=== PATIENT | male | born 1950 | race Caucasian/White ===

== ENCOUNTER 2022-08-23 10:53 | Outpatient (CLI) | payer MEDICARE, BC, SELFPAY | END 2022-08-23 10:54 | disposition home or self-care (01) | LOC: CT 10:56 | PROVIDERS: PCP Family Medicine; Visit Provider Orthopaedic Surgery Sports Medicine | DX: M19.011 Primary osteoarthritis, right shoulder (principal) | CPT/HCPCS: 73200 ==

== ENCOUNTER 2022-08-31 10:46 | Outpatient (RCR) | payer MEDICARE, BC, SELFPAY ==
--- NOTE | 2022-08-31 12:15 | OT.OPGNE ---
OT Outpatient General/Neuro Eval OT Outpatient General/Neuro Eval Start: 08/31/22 11:54 Freq: Status: Active Protocol: Document 08/31/22 11:54 SMW (Rec: 08/31/22 12:10 SMW [id number]) E-signed By Bea Harper OT OT Outpatient Evaluation Details Type Type Eval Complexity Low Insurance Information Insurance Information Insurance Information Medicare B Outpatient History/Precautions Medical/Functional History Medical History Reviewed Yes Prior Level of Function/Mobility Patient lives independently with spouse in one level home. Patient uses no assistive device for ambulation. 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 The patient lives with spouse in one level home. He reports I in all ADLs and IADLS. He reports he has had 25 surgeries over the years. He was educated on one handed dressing techniques , positioning, sling management, post op exercises. He will complete his post op PT at [facility] in [place]. All questions answered satisfactorily. Occupational Therapy Treatment Plan - OP Goals Goals Within one visit, the patient will.. 1. understand and return demonstrate post op exercises. goal met 2. understand positioning, one handed dressing, polar care management. goal met. Progress met Certification Certification I Certify That: Therapy Services Provided, Therapy Plan Established, Therapy Plan Reviewed Recertification Information Recertification Information Initial Certification Date 08/31/22 Provider Signature Shows Agreement With POC & Medical Necessity Physician Comment/Change Comment or Changes Physician NPI Number #
== END 2023-02-16 23:59 | disposition home or self-care (01) ==
PROVIDERS: PCP Family Medicine; Visit Provider Orthopaedic Surgery Sports Medicine
DX: M19.011 Primary osteoarthritis, right shoulder (principal); Z51.89 Encounter for other specified aftercare
CPT/HCPCS: 97165; 97535

== ENCOUNTER 2022-09-27 08:58 | Outpatient (CLI) | payer MEDICARE, BC, SELFPAY ==
[2022-09-27 14:33] LABS: SARS PCR* POSITIVE SARS-CoV-2 (Negative)
== END 2022-09-27 08:59 | disposition home or self-care (01) ==
LOC: FBOREF 08:59
PROVIDERS: PCP Family Medicine; Visit Provider Orthopaedic Surgery Sports Medicine
DX: U07.1 COVID-19 (principal)
CPT/HCPCS: 87635

== ENCOUNTER 2022-11-02 09:40 | Day surgery (SDC) | payer MEDICARE, BC, SELFPAY ==
--- NOTE | 2022-10-04 11:51 | PC.NURSE ---
10/04/22 Spoke with pt's . They will call clinic to schedule a H&P. Covid antigen test is schedule for 11/01 at [facility]. Denies questions. Merlene Tejada RN
[2022-11-02] VITALS (23 sets, daily range): BP systolic 124–167; BP diastolic 65–96; PULSE 57–97; RESP 12–20; TEMP 36.2–36.6; O2SAT 92–96; BMI 30.8
[2022-11-02] MEDS: CELECOXIB 200 MG CAPSULE PO (09:29)
[2022-11-02] MEDS: OXYCODONE (CR) 10 MG TAB.ER.12H PO (09:29)
[2022-11-02] MEDS: ACETAMINOPHEN 500 MG TABLET 1000 MG PO ×2 (09:29→17:47)
[2022-11-02] MEDS: LACTATED RINGERS 1000 ML 1,000 ML 100 ML IV ×2 (10:29→12:54)
[2022-11-02] MEDS: SODIUM CHLORIDE 0.9 % (FLUSH) 10 ML SYRINGE IVF (10:30)
--- NOTE | 2022-11-02 11:12 | SUR.PREOP ---
TIME?OUT:?1118 PT/RN/MDA?VERIFICATION?OF?SURGICAL?SITE,?PROCEDURE,?AND?CONSENT OBTAINED?PRIOR?TO?INVASIVE?PROCEDURE.
[2022-11-02] MEDS: fentaNYL 100 MCG/2 ML inj IVP (11:19)
[2022-11-02] MEDS: MIDAZOLAM HCL 1 MG/ML inj IVP (11:19)
--- NOTE | 2022-11-02 12:07 | P.NB_ITS ---
Nerve Block Nerve Block Time Seen by Provider: 11:30 Date Seen: 11/02/22 Type of block requested by surgeon for post-operative analgesia: supraclavicular Side: right Time out performed: Yes Verification of patient name: Yes Verification of date of : Yes Site marking: site marked Name of person performing procedure: bandar Continuous monitoring Was continuous monitoring of O2 sat, B/P, cardiac nurse specialist, recorded every 15 minutes?: Yes Procedure Checklist: sterile prep, needles and gloves Ultrasound guided. Images saved: Yes Medications given in 5ml increments after negative aspiration: Ropivicaine %: 0.5 mL: 20 Needle gauge: 22 Decadron (mg): 10 Precedex (mcg): 25 Patient tolerated procedure well: Yes Block Charges Block Charge (with Pro Fee): Brachial Plexus Use of Ultrasound Machine for Block: Yes- US Guidance/pain block
--- NOTE | 2022-11-02 12:12 | CRLHL7_ITS ---
For Patients: As a result of the Cures Act, medical imaging exams and procedure reports are released immediately into your electronic medical record. You may view this report before your referring provider. If you have questions, please contact your health care provider. Indication: post op right total shoulder arthroplasty Technique: Two views right shoulder Findings/Impression: Hardware from a right total shoulder arthroplasty is in satisfactory position. Bone alignment is normal. No sign of acute fracture. Postop changes are within normal limits. Dictated by Bhavik Thomas MD @ 11/03/2022 10:03:18 AM (Electronically Signed)
[2022-11-02] MEDS: CEFAZOLIN 2 GM in 0.9 % SODIUM CHLORIDE Mini-bag 100 ML IVPB ×2 (12:15→17:48)
[2022-11-02] MEDS: TRANEXAMIC ACID 100 MG/ML INJ 1000 MG IV (12:15)
--- NOTE | 2022-11-02 14:22 | P.ORPRC_ITS ---
Procedure Note Date of procedure: 11/02/22 Procedure: PREOPERATIVE DIAGNOSIS: 1. Right shoulder cuff tear arthropathy 2. Right long head of the biceps tendinopathy and tenosynovitis 3. Right shoulder retained deep implant (previous metallic and peek suture anchors for remote rotator cuff repair) POSTOPERATIVE DIAGNOSIS: 1. Right shoulder cuff tear arthropathy 2. Right long head of the biceps tendinopathy and tenosynovitis 3. Right shoulder retained deep implant (previous metallic and peek suture anch ors for remote rotator cuff repair) PROCEDURE: 1. Right reverse shoulder arthroplasty. 2. Right long head of biceps open tenodesis 3. Right shoulder open removal of deep implant (multiple suture anchors from prior rotator cuff repair) SURGEON: Chad Chacko MD. DIESEL ENGINEER: Arnie Cabrera PA-C; Dwaine PEREZ - Of note, a skilled hr administrative assistant was critical for this case to aid in patient positioning, tissue retraction, limb manipulation/positioning, retraction for glenoid exposure, which was challenging, awareness and protection of critical structures, and closure. ANESTHESIA: General plus supraclavicular block IMPLANTS: DJ0 surgical Altivate humeral stem size 14 regular shell, short with P2 porous coating vitamin E neutral poly small socket insert RSP glenoid base plate P2 porous coating with 3 perimeter locking screws 32 neutral glenosphere with retaining screw COMPLICATIONS: None evident INDICATIONS: The patient is a pleasant 72-year-old male who has experienced severe right shoulder pain and difficulty with use. Workup included imaging which revealed severe osteoarthrosis along with concern for rotator cuff quality. Physical exam was consistent with associated pain. Given the deformity, the dysfunction, and the pain, and failure of nonoperative management, recommendation was made for surgery. DESCRIPTION OF PROCEDURE: Following a thorough discussion of risks, benefits, and alternatives, consent was obtained and the left shoulder was marked. The patient was brought to the operating room and placed supine on the operating table. Induction of anesthesia was undertaken. 2 g IV Ancef and 1 g tranexamic acid was administered within 1 hr of incision preoperatively. Appropriate time- out was performed identifying proper patient, site, and procedure. The operative extremity was prepped and draped in the appropriate sterile fashion using ChloraPrep after the patient was positioned in the lazy beach chair position with head in neutral alignment and all bony prominences well padded. A longitudinal incision was made for deltopectoral approach. Deltoid was retracted laterally. Cephalic vein was identified and retracted laterally as well. The vein did require ligation near the in the procedure due to persistent bleeding that could not be controlled with cautery. The clavipectoral fascia was identified and divided longitudinally staying lateral to the conjoined tendon / coracoid. The conjoined tendon was protected with a blunt Hohmann. The long head of the biceps tendon was identified and the bicipital sheath released. The upper 1/3 of the pectoralis major was also released from its insertion. The long head of the biceps was tenodesed to the pectoralis major tendon. The remaining proximal tendon tissue was excised. The rotator cuff was inspected and found to have good integrity with the subscapularis but fair integrity with a supraspinatus], and a decision for a reverse shoulder arthroplasty was confirmed. [The long head of biceps, of note, was significant flattened, thickened, with abundant tenosynovitis. A subscapularis cuff of tissue was left via tenotomy for later repair with the remaining subscapularis released in a subperiosteal fashion with the Bovie. This was tagged for later repair. The 3 sisters were cauterized. The upper subscapularis was released from the capsule with a curved Gray scissors towards the glenoid. The inferior subscapularis was divided from the capsular tissue on its caudal surface with particular caution for the axillary nerve. This was palpated anterior to the subscapularis both prior to and near the finish of the case. Inferior humeral head osteophytes were excised with caution taken throughout the case with regards to the axillary nerve. The humerus was dislocated, and humeral head cut completed. Then a protector plate was applied. We turned our attention to the glenoid. The humerus was retracted posteriorly. The subscap was protected anteriorly and the labrum/long head biceps origin was excised circumferentially. The capsule was released along the anterior and inferior portions of the glenoid cautiously with a Cedeno elevator being careful not to penetrate deep. The glenoid had appropriate exposure, and was prepared with the cannulated system with a target of approximately 5-10? of inferior tilt and neutral anteversion (patient had 7 ? of retroversion initially). [Utilizing the match Point 3D printed guide, the guide pin was placed. The 3D printed jig removed and after placing the guide pin, the tap was placed followed by the glenoid reaming. The real base plate was opened, and inserted, and excellent compression/purchase was achieved with the central screw. Peripheral screws were then drilled, measured, and placed. The glenosphere was then placed consistent with the preoperative plan utilizing the above noted glenosphere. After securing the glenosphere with the locking, torque limited screw, attention was turned back to the humerus. A canal finder was placed followed by various reamers by hand. Of note, the proximal humeral Reamer did encounter metallic anchor. This prevented us from seeding the proximal Reamer fully. Therefore, this required removal of the anchor. During that process, 2 more peek anchors were encountered with the FiberWire and Ethibond sutures. These anchors were removed completely as were the sutures alone is to remove the retained deep implants from the remote rotator cuff repair. Thorough irrigation normal saline was performed as was curetting were the anchors had been placed to decrease any risk for infection. The real humeral stem was then opened and inserted with excellent metaphyseal fit and stability. Trial poly was placed and the shoulder reduced. Excellent reduction and stability achieved with appropriate tension on the conjoined tendon. At this stage, trial implants were removed, and the real implants inserted and the shoulder reduced. A 3 minute Betadine soak was performed fo llowed by a thorough irrigation with normal saline. Subscapularis was repaired with #1 PDS to the cuff of tissue on the lesser tuberosity. Excellent reapproximation of tissue achieved. Hemostasis was found to be appropriate. The deltopectoral interval was reapproximated with 0 Vicryl, subcutaneous and subcuticular closure was then performed with number 2-0 Vicryl and 4-0 Monocryl, respectively. A skilled hr administrative assistant was critical for this case to aid in patient positioning, tissue retraction, limb manipulation/positioning, retraction for glenoid exposure, which was challenging, awareness and protection of critical structures, and closure. PLAN: 1. Sling at all times for the operative upper extremity. 2. AROM of elbow, forearm, wrist, and digits as tolerated. 3. PT/OT consults for education and assistance. 4. Social consult for discharge planning. 5. 23 hr perioperative antibiotics. 6. Early ambulation, and SCDs for DVT prophylaxis. 7. Admit to the hospital for the above 8. Analgesics p.r.n.
--- NOTE | 2022-11-02 14:41 | W.ANESCHARGE ---
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
--- NOTE | 2022-11-02 15:23 | SUR.PHASEI ---
patient met discharge criteria per anesthesia
[2022-11-02] MEDS: LACTATED RINGERS 1000 ML 1,000 ML 75 ML IV (15:46)
--- NOTE | 2022-11-02 17:32 | P.IMCN_ITS ---
Date of Consult Patient: Hoda Patient Consult date: 11/02/22 Requesting Physician: Orthopedics Primary Care Provider: Diego Mckeon MD Consult Narrative Reason for consult: Postoperative medical management Narrative: Emil Frias is a 72 year old right-handed male seen after right shoulder arthroplasty. Procedures performed by Dr. Chacko today. There were no complications. Postoperatively he is doing well. He is not having significant pain. His block is still in affect. Preoperatively he reports doing well. He he has not had recent illness or i njury. He was scheduled to have shoulder surgery month ago but it had to be postponed because he had a positive COVID test though he was asymptomatic at the time. Subsequently he has had negative COVID tests. He is vaccinated for COVID. He has had multiple previous surgeries, mostly orthopedic related to degenerative disease and injuries. He has had no complications from his surgeries or anesthesia. No problems with bleeding or clotting. Review of Systems Narrative: Reports feeling well. No dyspnea, cough, chest pain. Does not have a history of respiratory disease, asthma, COPD. No history of heart disease. [facility] Medical History (Updated 11/02/22 @ 17:43 by Reilly Hill MD) Arthritis ?M19.90 - Unspecified osteoarthritis, unspecified site (ICD-10) Diabetes ?E11.9 - Type 2 diabetes mellitus without complications (ICD-10) Elevated cholesterol ?E78.00 - Pure hypercholesterolemia, unspecified (ICD-10) Hypertension ?I10 - Essential (primary) hypertension (ICD-10) Surgical History H/O left wrist surgery (12/29/16) ?Z98.890 - Other specified postprocedural states (ICD-10) History of elbow surgery (09/24/10) ?Z98.890 - Other specified postprocedural states (ICD-10) History of lumbar surgery (~05/2019) ?Z98.890 - Other specified postprocedural states (ICD-10) History of nasal surgery ?Z98.890 - Other specified postprocedural states (ICD-10) S/P arthroscopic knee surgery (11/16/07) ?Z98.890 - Other specified postprocedural states (ICD-10) S/P right knee arthroscopy (01/11/05) ?Z98.890 - Other specified postprocedural states (ICD-10) Status post arthroscopy of left shoulder (08/25/21) ?Z98.890 - Other specified postprocedural states (ICD-10) Status post arthroscopy of right shoulder (01/23/15) ?Z98.890 - Other specified postprocedural states (ICD-10) 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 They live in a town house with no steps. Remote history of smoking. He drinks 2 whiskeys per day. Reports no problems if he does not drink for a day. Smoking Status: Former smoker Do you use any of these nicotine containing products: None How often do you have a drink containing alcohol: 4 or more times a week Alcohol type: hard liquor Alcohol type details: Fatmata How many standard drinks containing alcohol do you have on a typical day: 1 or 2 How often do you have six or more drinks on one occasion: Less than monthly AUDIT-C Alcohol total score: 5 Non-prescribed substance use: denies use Caffeine: No service: Yes Meds Home Medications and Allergies Home Medications Medication Instructions Recorded Confirmed Type amlodipine 5 mg tablet 5 mg PO DAILY 02/11/22 11/02/22 History atorvastatin 40 mg tablet 40 mg PO DAILY 02/11/22 11/02/22 History hydrochlorothiazide 25 mg tablet 25 mg PO DAILY 02/11/22 11/02/22 History losartan 25 mg tablet 25 mg PO DAILY 02/11/22 11/02/22 History multivitamin (Multiple Vitamins 1 tab PO DAILY 02/11/22 11/02/22 History tablet) potassium chloride 10 mEq 10 meq PO BIDWM 06/07/22 11/02/22 History tablet,extended release albuterol sulfate 90 mcg/actuation 2 inh inhalation Q8H PRN 10/31/22 11/02/22 History aerosol inhaler tramadol 50 mg tablet 50 mg PO Q6H PRN 10/31/22 11/02/22 History cholecalciferol (vitamin D3) 50 50 mcg PO DAILY 11/02/22 11/02/22 History mcg (2,000 unit) capsule magnesium oxide 400 mg PO DAILY 11/02/22 11/02/22 History Allergies Allergy/AdvReac Type Severity Reaction Status Date / Time codeine Allergy Intermediate nausea, Verified 11/02/22 10:00 confusion lisinopril Allergy Mild states Verified 11/02/22 10:00 causes cough Exam Narrative: Exam Narrative: He is alert and appears in no distress. He gives his own history. Oropharynx with small airway. Neck is supple without mass or adenopathy. Respirations are clear to auscultation. He has somewhat diminished breath sounds. No wheezing rales or rhonchi. Approximately equal breath sounds side to side. Cardiovascular: S1, S2, regular rate and rhythm. No murmur gallop or rub. Abdomen: Bowel sounds active. Abdomen is soft without tenderness or mass. Extremities without edema. Right upper extremity with block still affective causing numbness and minimal motion in his thumb and index finger only. Good radial pulse. Left arm and bilateral lower extremities are otherwise normal Const: Vital Signs, click to edit/add: Vital Signs - 24 hr 11/02/22 10:11 11/02/22 11:19 11/02/22 11:25 Temperature 97.9 F Pulse Rate 57 L 58 L 65 Pulse Rate [Left P ulse Oximeter] Respiratory Rate 16 16 16 Blood Pressure 163/72 H 161/94 H 162/76 H Blood Pressure [Le ft Arm] Pulse Oximetry 95 95 93 Oxygen Delivery Me thod Room Air Nasal Cannula Nasal Cannula Oxygen Flow Rate 2 2 11/02/22 11:36 11/02/22 14:37 11/02/22 14:40 Temperature 97.5 F L 97.5 F L Pulse Rate 62 73 71 Pulse Rate [Left P ulse Oximeter] Respiratory Rate 16 16 16 Blood Pressure 167/82 H 135/65 133/68 Blood Pressure [Le ft Arm] Pulse Oximetry 96 93 95 Oxygen Delivery Me thod Nasal Cannula Nasal Cannula Nasal Cannula Oxygen Flow Rate 2 3 3 11/02/22 14:45 11/02/22 14:50 11/02/22 14:55 Temperature 97.5 F L 97.5 F L 97.5 F L Pulse Rate 72 73 69 Pulse Rate [Left P ulse Oximeter] Respiratory Rate 16 20 14 Blood Pressure 129/80 138/85 137/84 Blood Pressure [Le ft Arm] Pulse Oximetry 96 95 95 Oxygen Delivery Me thod Nasal Cannula Nasal Cannula Nasal Cannula Oxygen Flow Rate 3 3 3 11/02/22 15:00 11/02/22 15:05 11/02/22 15:20 Temperature 97.5 F L 97.5 F L 97.3 F L Pulse Rate 76 74 Pulse Rate [Left P ulse Oximeter] 60 Respiratory Rate 15 20 18 Blood Pressure 150/90 H 151/82 H Blood Pressure [Le ft Arm] 130/75 Pulse Oximetry 96 93 93 Oxygen Delivery Me thod Nasal Cannula Nasal Cannula Nasal Cannula Oxygen Flow Rate 3 3 2 11/02/22 16:26 11/02/22 16:26 11/02/22 15:20 Temperature 97.3 F L 97.3 F L 97.3 F L Pulse Rate 74 Pulse Rate [Left P ulse Oximeter] 60 60 Respiratory Rate 18 18 18 Blood Pressure Blood Pressure [Le ft Arm] 130/75 130/75 130/75 Pulse Oximetry 93 93 Oxygen Delivery Me thod Nasal Cannula Nasal Cannula Nasal Cannula Oxygen Flow Rate 2 2 2 11/02/22 15:35 11/02/22 15:50 11/02/22 16:05 Temperature 97.2 F L 97.2 F L 97.4 F L Pulse Rate Pulse Rate [Left P ulse Oximeter] 60 60 70 Respiratory Rate 18 18 18 Blood Pressure Blood Pressure [Le ft Arm] 129/73 138/71 140/76 H Pulse Oximetry 95 93 92 Oxygen Delivery Me thod Nasal Cannula Nasal Cannula Nasal Cannula Oxygen Flow Rate 2 2 2 11/02/22 16:20 Temperature 97.3 F L Pulse Rate Pulse Rate [Left P ulse Oximeter] 76 Respiratory Rate 18 Blood Pressure Blood Pressure [Le ft Arm] 128/96 H Pulse Oximetry 93 Oxygen Delivery Me thod Nasal Cannula Oxygen Flow Rate 2 Documenting provider has reviewed patient's vital signs: yes Assessment and Plan Assessment and plan (1) Status post reverse total arthroplasty of right shoulder: Problem comment: Right reverse shoulder arthroplasty, long head of biceps open tenodesis, open removal of deep implant (multiple suture anchors from prior rotator cuff repair) (11/02/2022, Dr. Chacko) Status: Acute (2) Essential hypertension: Status: Acute (3) Hypoxia: Problem comment: Patient currently requiring 2 L of oxygen per nasal cannula to maintain O2 sats in the 90s. He is currently asymptomatic. Considerations include affects of anesthesia and possible phrenic nerve paralysis from nerve block. Undiagnosed sleep apnea? Will continue to monitor this. Consider further evaluation if still hypoxic in the morning. Status: Acute Plan Monitor in-hospital for any medical complications. Monitor hypoxia and further evaluate if continued to be hypoxic tomorrow after most of the affects of anesthesia should have worn off. Resume home medications. Routine management of pain and therapy. Total time spent today is 40 minutes, 25 minutes in coordination of care discussing with patient and other providers management of postoperative care and hypoxia.
[2022-11-02] MEDS: POTASSIUM CHLORIDE 10 MEQ CAPSULE ER PO (17:47)
[2022-11-02] MEDS: MAGNESIUM OXIDE 400 MG TABLET PO (17:47)
--- NOTE | 2022-11-02 19:16 | PC.NURSE ---
Patient returned from surgery at 1520 from right shoulder surgery. Patient block still in affect. Patient has no c/o pain. Patient up to chair with minimal assistance. Patient able to drink and eat with no n/v. Patient able to voice concerns. Patient call light within reach. Patient remained vitally stable throughout shift.
[2022-11-03 00:27] VITALS: TEMP 36.2
[2022-11-03] MEDS: ACETAMINOPHEN 500 MG TABLET 1000 MG PO ×2 (00:27→05:43)
[2022-11-03] MEDS: CEFAZOLIN 2 GM in 0.9 % SODIUM CHLORIDE Mini-bag 100 ML IVPB (02:03)
[2022-11-03 02:04] VITALS: TEMP 36.9
[2022-11-03] MEDS: OXYCODONE 5 MG TABLET PO ×4 (02:07→09:38)
[2022-11-03 02:47] VITALS: BP 138/77; PULSE 71; RESP 12; TEMP 36.2; O2SAT 95
[2022-11-03] MEDS: HYDROmorphone 0.5 mg/0.5 ml inj IVP ×2 (05:23→06:49)
[2022-11-03] MEDS: SODIUM CHLORIDE 0.9 % (FLUSH) 10 ML SYRINGE IVF ×2 (05:23→06:50)
--- NOTE | 2022-11-03 06:12 | PC.NURSE ---
0430-07: Pt checked around 0445 and was resting eyes closed lying back in recliner, rr 14. Used call light around 0530 rating pain 9-10, stated hasn't slept and that the oxycodone prior didn't help his pain. Dilaudid given, changed ice, noted some relief as patient less restless/not grabbing site anymore, became more talkative using arms to talk when telling stories, stated pain improved, oxycodone was given shortly after noticing some improvement to keep on top of pain and to see if the oxycodone is going to work on discharge, has been on room air tonight. I&O adeq.
[2022-11-03 06:44] LABS: HCO3 VBG 29 mmol/L (21-28); PCO2 VBG 48 mmHG (40-50); pH VBG 7.392 (7.32-7.43)
[2022-11-03 06:51] LABS: Hematocrit 39.5 % (37.0-53.0); Mean Corpuscular HGB Conc 35 gm/dL (32-36); Mean Corpuscular Hemoglobin 32 pg (26-34); Mean Corpuscular Volume 91 fL (80-100); Platelet Count* 191 K/uL (140-440); Red Blood Count 4.32 m/uL (4.30-5.90); White Blood Count* 11.95 K/uL (4.50-11.00)
[2022-11-03 07:04] LABS: Slide Review Reflex No
[2022-11-03 07:15] LABS: Sodium* 137 mmol/L (135-149)
[2022-11-03 07:18] LABS: Creatinine* 0.7 mg/dL (0.5-1.5); Estimated Glomerular Filt Rate 97 ml/min; Potassium* 4.2 mmol/L (3.6-5.1)
[2022-11-03 07:19] LABS: Blood Urea Nitrogen* 14 mg/dL (7-30)
[2022-11-03 07:30] VITALS: PULSE 78; RESP 18; O2SAT 96
[2022-11-03] MEDS: POTASSIUM CHLORIDE 10 MEQ CAPSULE ER PO (07:54)
[2022-11-03] MEDS: hydroCHLOROthiazide 25 MG TABLET PO (07:55)
[2022-11-03] MEDS: MULTIVITAMIN/MINERALS 1 TABLET 1 TAB PO (07:56)
[2022-11-03] MEDS: LOSARTAN POTASSIUM 50 MG TABLET 25 MG PO (07:56)
[2022-11-03] MEDS: AMLODIPINE 5 MG TABLET PO (07:57)
[2022-11-03 10:15] VITALS: BP 151/82; PULSE 74; RESP 12; TEMP 36.2
--- NOTE | 2022-11-03 10:37 | PC.SOCIAL ---
Per therapy pt is doing well and will discharge today. There are no identified social work needs at this time.
--- NOTE | 2022-11-03 12:58 | PM.ORPN ---
Subjective Subjective Date Seen: 11/03/22 Principal diagnosis: Status postop day 1 right reverse total shoulder arthroplasty Interval history: Patient reports doing not great due to anterior shoulder pain. Difficult night of sleep due to the pain, not able to find a position of comfort. Rating pain at its best 7/10. He explains this pain is typical for the right shoulder even preoperative. Doing we could relieve discomfort is if he put his arm above his head and behind his head, which of course is a position he cannot assume right now due to surgery. He finds some relief with letting the arm relaxed at the side straight, and with some elevation. Pain is the worse at night trying to sleep. Pain is reasonably managed with scheduled/PRN medications and ice. DVT prophylaxis bilateral knee high Mushtaq stockings, and SCDs. Denies fevers, chills, aches, N/V, CP, SOB/[place], tachycardia, or lightheadedness. Ortho Exam Narrative Exam Narrative: -Patient appears uncomfortable in recliner upon first visit, complaining of shoulder pain. As the conversation goes on, he can verses with no obvious pain and appears rather delightful. No apparent acute distress -Alert and oriented times 3 -Operative shoulder swollen; soft, supple tissues; no obvious erythema. Ecchymosis minimal distal humerus. Warmth appropriate. No obvious hematoma, fluctuance, or induration over the anterior lateral shoulder. Pain a more focused anterior shoulder verses lateral shoulder. -Surgical dressing clean, dry, intact; no obvious drainage, no erythematous streaking peripheral to the bandage -Bilateral calves soft and supple; no significant swelling, edema, tenderness, erythema, discoloration, warmth, or palpable cords -2+ radial pulse, intact dermatomes and myotomes distally (5/5 strength) Const Vital Signs, click to edit/add: Vital Signs - 24 hr 11/02/22 14:37 11/02/22 14:40 11/02/22 14:45 Temperature 97.5 F L 97.5 F L 97.5 F L Pulse Rate 73 71 72 Pulse Rate [Left Pulse Oximeter] Respiratory Rate 16 16 16 Blood Pressure 135/65 133/68 129/80 Blood Pressure [Left Arm] Pulse Oximetry 93 95 96 Oxygen Delivery Method Nasal Cannula Nasal Cannula Nasal Cannula Oxygen Flow Rate 3 3 3 11/02/22 14:50 11/02/22 14:55 11/02/22 15:00 Temperature 97.5 F L 97.5 F L 97.5 F L Pulse Rate 73 69 76 Pulse Rate [Left Pulse Oximeter] Respiratory Rate 20 14 15 Blood Pressure 138/85 137/84 150/90 H Blood Pressure [Left Arm] Pulse Oximetry 95 95 96 Oxygen Delivery Method Nasal Cannula Nasal Cannula Nasal Cannula Oxygen Flow Rate 3 3 3 11/02/22 15:05 11/02/22 15:20 11/02/22 16:26 Temperature 97.5 F L 97.3 F L 97.3 F L Pulse Rate 74 74 Pulse Rate [Left Pulse Oximeter] 60 Respiratory Rate 20 18 18 Blood Pressure 151/82 H Blood Pressure [Left Arm] 130/75 130/75 Pulse Oximetry 93 93 Oxygen Delivery Method Nasal Cannula Nasal Cannula Nasal Cannula Oxygen Flow Rate 3 2 2 11/02/22 16:20 11/02/22 15:20 11/02/22 15:35 Temperature 97.3 F L 97.3 F L 97.2 F L Pulse Rate Pulse Rate [Left Pulse Oximeter] 60 60 60 Respiratory Rate 18 18 18 Blood Pressure Blood Pressure [Left Arm] 130/75 130/75 129/73 Pulse Oximetry 93 93 95 Oxygen Delivery Method Nasal Cannula Nasal Cannula Nasal Cannula Oxygen Flow Rate 2 2 2 11/02/22 15:50 11/02/22 16:05 11/02/22 16:20 Temperature 97.2 F L 97.4 F L 97.3 F L Pulse Rate Pulse Rate [Left Pulse Oximeter] 60 70 76 Respiratory Rate 18 18 18 Blood Pressure Blood Pressure [Left Arm] 138/71 140/76 H 128/96 H Pulse Oximetry 93 92 93 Oxygen Delivery Method Nasal Cannula Nasal Cannula Nasal Cannula Oxygen Flow Rate 2 2 2 11/02/22 16:50 11/02/22 17:20 11/02/22 18:20 Temperature 97.3 F L 97.3 F L 97.7 F Pulse Rate Pulse Rate [Left Pulse Oximeter] 97 97 83 Respiratory Rate 18 18 18 Blood Pressure Blood Pressure [Left Arm] 129/82 139/67 124/79 Pulse Oximetry 93 93 93 Oxygen Delivery Method Nasal Cannula Nasal Cannula Nasal Cannula Oxygen Flow Rate 2 2 2 11/02/22 20:35 11/02/22 20:37 11/02/22 22:07 Temperature 97.1 F L Pulse Rate Pulse Rate [Left Pulse Oximeter] 97 97 97 Respiratory Rate 12 12 12 Blood Pressure Blood Pressure [Left Arm] 138/85 Pulse Oximetry 93 Oxygen Delivery Method Room Air Oxygen Flow Rate 11/02/22 22:07 11/03/22 00:27 11/03/22 02:04 Temperature 97.1 F L 98.4 F Pulse Rate Pulse Rate [Left Pulse Oximeter] Respiratory Rate Blood Pressure Blood Pressure [Left Arm] Pulse Oximetry 95 Oxygen Delivery Method Room Air Oxygen Flow Rate 11/03/22 02:47 11/03/22 10:15 Temperature 97.2 F L 97.2 F L Pulse Rate 74 Pulse Rate [Left Pulse Oximeter] 71 Respiratory Rate 12 12 Blood Pressure 151/82 H Blood Pressure [Left Arm] 138/77 Pulse Oximetry 95 Oxygen Delivery Method Room Air Oxygen Flow Rate Assessment and Plan Assessment and plan (1) Status post reverse total arthroplasty of right shoulder: Problem details: Right reverse shoulder arthroplasty, long head of biceps open tenodesis, open removal of deep implant (multiple suture anchors from prior rotator cuff repair) (11/02/2022, Dr. Chacko) Status: Acute (2) Essential hypertension: Status: Acute (3) Hypoxia: Problem details: Patient currently requiring 2 L of oxygen per nasal cannula to maintain O2 sats in the 90s. He is currently asymptomatic. Considerations include affects of anesthesia and possible phrenic nerve paralysis from nerve block. Undiagnosed sleep apnea? Will continue to monitor this. Consider further evaluation if still hypoxic in the morning. Status: Acute Plan - Complete 23 hour perioperative antibiotics. - PT/OT consult for education and assistance. - Social work consult for discharge planning - Prescribed analgesics as needed - DVT prophylaxis: Bilateral knee high Mushtqa Hose stockings and SCDs - Anticipation is for discharge to home with spouse 11/03/2022 if the patient remains medically stable, pain is controlled, and they are safe with mobilization. - Ideas to help with his shoulder discomfort are to allow pendulums and distraction of the right upper extremity, and elevation on multiple pillows even up to eye level. He needs to avoid any external rotation/abduction of the shoulder to prevent pulling on the subscap repair (I made this clear with). He states understanding of this. He feels that he can manage the pain okay throughout the day, but would need more pain management for sleep. May consider prescribing oral anti-inflammatories sooner to help with inflammation and discomfort.
--- NOTE | 2022-11-03 13:04 | PM.DS1 ---
DS: Providers Provider Date Seen: 11/03/22 Date of admission: Med/Surg Recovery 11/02/2022 Primary care physician: Diego Mckeon MD Consults: 11/02/22 15:23 Consult to Occupational Therapy [CONS] Routine Comment: Reason(s) for OT Consult:: Evaluate and Treat Any Restrictions?:: See Comment Comment: ROM elbow, forearm, wrist, digits PRN Shoulder pendulums okay No active shoulder ROM Consult to Physical Therapy [CONS] Routine Comment: Reason(s) for PT Consult:: Evaluate and Treat Any Restrictions?:: No Restrictions Consult to Physician [CONS] Routine Comment: Consulting Provider: Hospitalists Has provider been notified: No Consult to Linoleum Floor Installer [CONS] Routine Comment: Reason for Consult:: Discharge Planning Needs Attending Physician on discharge: Chad Chacko MD Date of Discharge: 11/03/22 DS: Diagnosis Discharge Diagnosis (1) Status post reverse total arthroplasty of right shoulder: Status: Acute Problem details: Right reverse shoulder arthroplasty, long head of biceps open tenodesis, open removal of deep implant (multiple suture anchors from prior rotator cuff repair) (11/02/2022, Dr. 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 After appropriate preoperative evaluation, the patient underwent right reverse total shoulder arthroplasty, long head biceps tenodesis, and multiple open deep implant removal. Postoperatively they progressed to PT/OT and were felt ready and prepared for discharge to home with appropriate pain medication and anticoagulation medications. Pain was a difficult challenge postoperatively calf, mainly due to comfortable positions. We laid out expectations for pain and provided ideas on how to alleviate his discomfort. Status at Discharge Functional status at discharge: independent ambulation Time Spent with Patient Time attestation: Total time spent providing and/or coordinating discharge services: Time spent: Greater than 30 minutes Exam Const: Vital Signs, click to edit/add: Vital Signs - 24 hr 11/02/22 14:37 11/02/22 14:40 11/02/22 14:45 Temperature 97.5 F L 97.5 F L 97.5 F L Pulse Rate 73 71 72 Pulse Rate [Left P ulse Oximeter] Respiratory Rate 16 16 16 Blood Pressure 135/65 133/68 129/80 Blood Pressure [Le ft Arm] Pulse Oximetry 93 95 96 Oxygen Delivery Me thod Nasal Cannula Nasal Cannula Nasal Cannula Oxygen Flow Rate 3 3 3 11/02/22 14:50 11/02/22 14:55 11/02/22 15:00 Temperature 97.5 F L 97.5 F L 97.5 F L Pulse Rate 73 69 76 Pulse Rate [Left P ulse Oximeter] Respiratory Rate 20 14 15 Blood Pressure 138/85 137/84 150/90 H Blood Pressure [Le ft Arm] Pulse Oximetry 95 95 96 Oxygen Delivery Me thod Nasal Cannula Nasal Cannula Nasal Cannula Oxygen Flow Rate 3 3 3 11/02/22 15:05 11/02/22 15:20 11/02/22 16:26 Temperature 97.5 F L 97.3 F L 97.3 F L Pulse Rate 74 74 Pulse Rate [Left P ulse Oximeter] 60 Respiratory Rate 20 18 18 Blood Pressure 151/82 H Blood Pressure [Le ft Arm] 130/75 130/75 Pulse Oximetry 93 93 Oxygen Delivery Me thod Nasal Cannula Nasal Cannula Nasal Cannula Oxygen Flow Rate 3 2 2 11/02/22 16:20 11/02/22 15:20 11/02/22 15:35 Temperature 97.3 F L 97.3 F L 97.2 F L Pulse Rate Pulse Rate [Left P ulse Oximeter] 60 60 60 Respiratory Rate 18 18 18 Blood Pressure Blood Pressure [Le ft Arm] 130/75 130/75 129/73 Pulse Oximetry 93 93 95 Oxygen Delivery Me thod Nasal Cannula Nasal Cannula Nasal Cannula Oxygen Flow Rate 2 2 2 11/02/22 15:50 11/02/22 16:05 11/02/22 16:20 Temperature 97.2 F L 97.4 F L 97.3 F L Pulse Rate Pulse Rate [Left P ulse Oximeter] 60 70 76 Respiratory Rate 18 18 18 Blood Pressure Blood Pressure [Le ft Arm] 138/71 140/76 H 128/96 H Pulse Oximetry 93 92 93 Oxygen Delivery Me thod Nasal Cannula Nasal Cannula Nasal Cannula Oxygen Flow Rate 2 2 2 11/02/22 16:50 11/02/22 17:20 11/02/22 18:20 Temperature 97.3 F L 97.3 F L 97.7 F Pulse Rate Pulse Rate [Left P ulse Oximeter] 97 97 83 Respiratory Rate 18 18 18 Blood Pressure Blood Pressure [Le ft Arm] 129/82 139/67 124/79 Pulse Oximetry 93 93 93 Oxygen Delivery Me thod Nasal Cannula Nasal Cannula Nasal Cannula Oxygen Flow Rate 2 2 2 11/02/22 20:35 11/02/22 20:37 11/02/22 22:07 Temperature 97.1 F L Pulse Rate Pulse Rate [Left P ulse Oximeter] 97 97 97 Respiratory Rate 12 12 12 Blood Pressure Blood Pressure [Le ft Arm] 138/85 Pulse Oximetry 93 Oxygen Delivery Me thod Room Air Oxygen Flow Rate 11/02/22 22:07 11/03/22 00:27 11/03/22 02:04 Temperature 97.1 F L 98.4 F Pulse Rate Pulse Rate [Left P ulse Oximeter] Respiratory Rate Blood Pressure Blood Pressure [Le ft Arm] Pulse Oximetry 95 Oxygen Delivery Me thod Room Air Oxygen Flow Rate 11/03/22 02:47 11/03/22 10:15 Temperature 97.2 F L 97.2 F L Pulse Rate 74 Pulse Rate [Left P ulse Oximeter] 71 Respiratory Rate 12 12 Blood Pressure 151/82 H Blood Pressure [Le ft Arm] 138/77 Pulse Oximetry 95 Oxygen Delivery Me thod Room Air Oxygen Flow Rate DS: Data Data Completed and Pending Labs on day of discharge: Labs from last 24 hours 11/03/22 06:07 WBC 11.95 H RBC 4.32 Hgb 14.0 Hct 39.5 MCV 91 MCH 32 MCHC 35 Plt Count 191 VBG pH 7.392 VBG pCO2 48 VBG pO2 31.0 VBG HCO3 29 H Sodium 137 Potassium 4.2 BUN 14 Creatinine 0.7 Estimated Creat Clear 62.70 Estimated GFR 97 Discharge Plan Discharge Disposition: Home, Self-Care Discharging Surgeon: Chad Chacko Follow-Up Appointment: 1 week PO with JERRELL Gaitan Prescriptions: New acetaminophen 500 mg capsule 500 - 1,000 mg PO Q6H MDD 4000mg PRNQty: 60 0RF sennosides-docusate sodium [Senna-S] 8.6-50 mg tablet 1 - 4 tab-cap PO BID PRN (Reason: constipation) Qty: 60 0RF Rx Instructions: Hold medication if experiencing loose stools. doxycycline hyclate 100 mg capsule 100 mg PO BID Qty: 28 0RF Rx Instructions: Indicated for infection prevention postoperatively. oxycodone 5 mg tablet 2.5 - 5 mg PO Q4-6H MDD 6 PRN (Reason: pain) Qty: 42 0RF Rx Instructions: Take as needed for postop pain: 2.5mg mild pain, 5mg moderate-severe pain; wean as tolerated. Continued losartan 25 mg tablet 25 mg PO DAILY amlodipine 5 mg tablet 5 mg PO DAILY atorvastatin 40 mg tablet 40 mg PO DAILY multivitamin [Multiple Vitamins] Tablet 1 tab PO DAILY hydrochlorothiazide 25 mg tablet 25 mg PO DAILY potassium chloride 10 mEq tablet extended release 10 meq PO BIDWM albuterol sulfate 90 mcg/actuation HFA aerosol inhaler 2 inh inhalation Q8H PRN cholecalciferol (vitamin D3) 50 mcg (2,000 unit) capsule 50 mcg PO DAILY magnesium oxide 400 mg magnesium tablet 400 mg PO DAILY Held tramadol 50 mg tablet 50 mg PO Q6H PRN Hold Instructions: Resume on 11/09/22. hold while on postoperative oxycodone Rx Instructions: MAX 400 MG/DAY Activity Level: Activity as Tolerated Activity Detail: Wound: ?Do not remove original dressing; we will remove this at first postop visit in 1 week. Only remove dressing if integrity is in question. ?No immersing wound in water; showering okay; light scrub with your hand and body soap, rinse, dab dry ?Sutures are under the skin, will dissolve; allow surgical glue to come off naturally; do not scrub the wound or apply ointments/lotions ?Call our office with any redness that streaks, excessive drainage from the wound, or wound gapping. Sling: ?Wear at all times unless performing elbow range of motion, or to bathe. No weightbearing operative upper extremity. Ice/Elevate: ?Ice as needed for swelling and discomfort (cryocuff or ice pack); elevate hand/forearm about heart if possible ОЛЬГА socks: ?Wear for 1 month, remove for 1 hour 3 times per day ?These are frustrating to take on/off, but are important for blood clot prevention for 1 month after surgery even though this was an upper extremity surgery. Driving: ?Do not drive while taking narcotic pain medication ?Anticipate a few weeks of no driving if you feel uncomfortable driving with one arm Dental: ?No elective dental work for 6 months post-op. If there is an urgent/emergent dental need, contact our office for an antibiotic prescription. Smoking/Alcohol: ?Do not smoke; do no drink alcohol especially when taking postoperative oral narcotic medication Seek Care from you Primary Care Provider if you experience the following issues in the postoperative phase and beyond: ?Bacterial infections such as: pneumonia, bacterial skin infection (cellulitis), UTI, high fever, chills unrelated to the operative body part - call your primary care physician urgently for treatment in hopes to protect your health and the metal implant. Referrals: ?PT, OT per patient preference - evaluate treat reverse total shoulder arthroplasty protocol (ROM, ADLs) Follow up: ?Ortho surgeon follow-up in 6 weeks; repeat radiographs three views operative shoulder ?PA-Eric visit in 1 week *If there are any acute concerns regarding your surgery, please call our orthopedic clinic ([phone]) Discharge Diet: Regular Patient Instructions: Doxycycline (By mouth), Acetaminophen (By mouth), Oxycodone, Rapid Release (By mouth), Senna (By mouth), Surgical Site Infections (DC), Shoulder Arthroplasty (DC) Forms: Work/School Release Follow-up: Diego Mckeon MD [Primary Care Provider] - Miryam Borrego PA-C [Physician Clean Up Worker] - 11/09/22 10:00 am ([facility] with Miryam Borrego Orthopedic appointment) Discharge Orders: Discharge Order (Routine); Ordered 11/03/22 Ordered By: Arnie Cabrera
== END 2022-11-03 11:11 | disposition home or self-care (01) ==
LOC: OR 09:50 → MEDSURG 09:53
PROVIDERS: Family Medicine; PCP Family Medicine; Visit Provider Orthopaedic Surgery Sports Medicine
PROC: 0RRJ0JZ Replacement of Right Shoulder Joint with Synthetic Substitute, Open Approach (ICD-10-PCS; CPT 23472; principal; 2022-11-02 12:00)
DX: M75.101 Unspecified rotator cuff tear or rupture of right shoulder, not specified as traumatic (principal); M75.21 Bicipital tendinitis, right shoulder; I10 Essential (primary) hypertension; R09.02 Hypoxemia; E11.9 Type 2 diabetes mellitus without complications
CPT/HCPCS: 23472; 23430; 20680; 01638; 36415; 64415; 73030; 76942; 82565; 82803; 82962; 84132; 84295; 84520; 85027; 97116; 97162; 97165; 97535; 99100; A9153; A9270; C1713; C1776; J0330; J0690; J1100; J1170; J2250; J2370; J2405; J2704; J2710; J2795; J3010; J7120

== ENCOUNTER 2024-10-09 07:10 | Outpatient (CLI) | payer MEDICARE, BC, SELFPAY ==
--- NOTE | 2024-10-09 09:08 | W.ANESCHARGE ---
Anesthesia Charges Start Date/Time Anesthesia Start Date: 10/09/24 Anesthesia Start Time: 08:31 Stop Date/Time Anesthesia Stop Date: 10/09/24 Anesthesia Stop Time: 09:05 Summary Extremes of Age - Over 70 or under 1: MDA Coding CPT Codes CPT Codes: ANES LWR INTST NDSC NOS - 38240 ([id number]) P3 - PATIENT W/SEVERE SYS DISEASE Additional Codes: Summary - Extremes of Age - Over 70 or under 1: MDA ([id number])
--- NOTE | 2024-10-09 09:09 | P.ANES_ITS ---
Anesthesia Charges Start Date/Time Anesthesia Start Date: 10/09/24 Anesthesia Start Time: 08:31 Stop Date/Time Anesthesia Stop Date: 10/09/24 Anesthesia Stop Time: 09:05 Summary Extremes of Age - Over 70 or under 1: PROCESS SAFETY ENGINEERING TECHNOLOGIST Coding CPT Codes CPT Codes: ANES LWR INTST NDSC NOS - 07433 ([id number]) P3 - PATIENT W/SEVERE SYS DISEASE, QX - PROCESS SAFETY ENGINEERING TECHNOLOGIST SVC W/ MD MED DIRECTION, QK - NURSE TRANSITION 2-4 CNCRNT ANES PROC Additional Codes: Summary - Extremes of Age - Over 70 or under 1: PROCESS SAFETY ENGINEERING TECHNOLOGIST ([id number])
--- NOTE | 2024-10-09 09:09 | W.ANESCHARGE ---
Anesthesia Charges Start Date/Time Anesthesia Start Date: 10/09/24 Anesthesia Start Time: 08:31 Stop Date/Time Anesthesia Stop Date: 10/09/24 Anesthesia Stop Time: 09:05 Summary Extremes of Age - Over 70 or under 1: GUITAR MAKER HAND Coding CPT Codes CPT Codes: ANES LWR INTST NDSC NOS - 89458 ([id number]) P3 - PATIENT W/SEVERE SYS DISEASE, QX - GUITAR MAKER HAND SVC W/ MD MED DIRECTION, QK - PRINTED CIRCUIT BOARD PANELS TRIMMER 2-4 CNCRNT ANES PROC Additional Codes: Summary - Extremes of Age - Over 70 or under 1: GUITAR MAKER HAND ([id number])
== END 2024-10-09 07:11 | disposition home or self-care (01) ==
LOC: OP CLINIC 07:11
PROVIDERS: PCP Family Medicine; Visit Provider Internal Medicine Gastroenterology
DX: Z12.11 Encounter for screening for malignant neoplasm of colon (principal); D12.3 Benign neoplasm of transverse colon; K57.30 Diverticulosis of large intestine without perforation or abscess without bleeding; Z86.0101 Personal history of adenomatous and serrated colon polyps
CPT/HCPCS: 00811; 45380; 88305; 99100; J2704